=== PATIENT | male | born 1975 | race Caucasian/White ===

== ENCOUNTER 2024-09-12 17:28 | Emergency (ER) | payer OTHER ==
[~2024-09-12] VITALS: Ht 177.8 cm; Wt 72.6 kg
[2024-09-12 17:41] VITALS: TEMP 98.1
[2024-09-12] MEDS: IV NS 0.9% 1,000 ML BAG IV ONE (18:00)
[2024-09-12 18:04] LABS: FRACTIONATED INSPIRED OXYGEN-V 21.0 %; VBG BASE EXCESS 1.5 mmol/L (-2.0-3.0); VBG HCO3 25.8 mmol/L (22.0-29.0); VBG MetHb 0.1 % (0.5-1.5); VBG OXYGEN SATURATION 89.4 % (60.0-85.0); VBG PCO2 39.7 mmHg (38.0-54.0); VBG PH 7.431 (7.320-7.430); VBG PO2 54.6 mmHg (23.0-48.0); VBG TOTAL HEMOGLOBIN 14.2 G/dL (13.5-17.5)
[2024-09-12 18:07] LABS: PLATELET COUNT (AUTO) 210 K/uL (150-450); RED BLOOD CELL COUNT(AUTO) 4.53 MIL/uL (4.5-6.0); RED CELL DISTRIBUTION WIDTH 13.0 % (11.5-15.0); WHITE BLOOD COUNT (AUTO) 6.2 K/uL (4.3-11.0)
[2024-09-12 18:14] LABS: CALCIUM, SERUM 9.0 mg/dL (8.5-10.1); CREATININE 0.8 mg/dL (0.6-1.3); SODIUM SERUM 137 mmol/L (136-145); UREA NITROGEN, BLOOD 16 mg/dL (7-18)
[2024-09-12 18:27] LABS: ASPARTATE AMINOTRANSFERASE 8 U/L (15-37); NT-PRO BNP 113 pg/mL (0-125); TOTAL PROTEIN, SERUM 7.2 g/dL (6.4-8.2)
[2024-09-12] MEDS ORDERED: INSULIN REGULAR, HUMAN 100 UNIT/ML 10 ML VIAL ONE (19:01)
[2024-09-12] MEDS: INSULIN REGULAR, HUMAN 100 UNIT/ML 10 ML VIAL SQ ONE (19:05)
[2024-09-12] MEDS ORDERED: METF-440 PO (19:40)
[2024-09-12 20:06] VITALS: BP 136/82; O2SAT 96
[2024-09-12 20:21] LABS: APPEARANCE,URINE CLEAR (CLEAR); BLOOD, URINE NEGATIVE Ery/uL (NEGATIVE); LEUKOCYTE ESTERASE ,URINE NEGATIVE (NEGATIVE); NITRITE, URINE NEGATIVE (NEGATIVE); UGLUCOSE 3+ mg/dL (NEGATIVE)
[2024-09-12 20:27] LABS: ADD URINE CULTURE NO; SQUAMOUS EPITHELIAL CELL,UR 0-2 /HPF (None Seen)
== END 2024-09-12 19:59 | disposition home or self-care (01) ==
LOC: ER 17:34
DX: R73.9 Hyperglycemia, unspecified (principal); R63.2 Polyphagia; R63.1 Polydipsia; R07.9 Chest pain, unspecified
CPT/HCPCS: 99285; 96360; 71045; 93005; 82803 ×2; 85025; 80048; 82010; 83690; 80076; 81001; 36415; 84484; 83880; 82962 ×2; 36600; 96372; J1815; J7030; 87086-TC